=== PATIENT | male | born 1995 | race Caucasian/White ===

== ENCOUNTER 2017-02-09 10:34 | Emergency (ER) | payer OTHER ==
--- NOTE | 2017-02-09 12:09 | ED CLINICAL REPORT ---
Clinical Report - Physicians/Mid Levels [facility] [address] [place] [address] 02/09/2017 10:36 Patient: JOHNSON JOEL Time Seen: 10:57. Arrived- By private vehicle. Historian- patient. HISTORY OF PRESENT ILLNESS Chief Complaint: Injury to the right elbow and right wrist. The injury happened yesterday. Fell. Occurred on a street. ( The patient fell forward while skateboarding. He landed on both hands. His main pain is in the right elbow and a bit less in the right wrist. He also has an abrasion on the right knee and left hand.). Patient is experiencing moderate pain. No other injury. REVIEW OF SYSTEMS The patient sustained a laceration (Abrasion). No swelling, tingling, numbness, weakness or suspected foreign body. PAST HISTORY Tetanus immunization status is unknown. SOCIAL HISTORY Current every day smoker. ADDITIONAL NOTES The nursing notes have been reviewed. PHYSICAL EXAM Appearance: Alert. No acute distress. Head: Head atraumatic. Neck: C-spine non-tender. Respiratory: Chest nontender. Abdomen: Soft and nontender. Back: No tenderness. Extremities: Right elbow: moderate tenderness and mild swelling located in the area of the radial head and olecranon. Small joint effusion present. Neurovascular intact distally. No erythema, laceration, abrasion, foreign body or deformity. No limitation in ROM. Right wrist: moderate tenderness located in the ulnar aspect of the wrist. Neurovascular intact distally. No swelling, abrasion, foreign body or deformity. Not localized to the anatomic snuffbox. No joint effusion or limitation in ROM. Neuro, Vascular and Tendons: Sensation intact. Motor intact. Neuro: No alteration in mental status. LABS, X-RAYS, AND EKG Rt Elbow X-ray: (WRIST IS NEG ELBOW EXAM IS CW RADIAL HEAD FRACTRUE, XRAY SHOWS ANT AND POST FAT PAD SIGN. RR INDICATION: TRAUMA/INJURY TECHNIQUE: Nine views (including repeat views). COMPARISON: None. FINDINGS: There is a nondisplaced vertical fracture of the right radial head. There is a moderate right elbow effusion. The rest of the osseous structures and joint spaces are normal. IMPRESSION: 1. Nondisplaced vertical intra-articular fracture of the right radial head. 2. Associated moderate effusion. Dictated by: EDIN VYAS MD D: CLAUDIA;02/09/17 1937 <Electronically signed by EDIN VYAS MD in OV> 02/09/17 1357). The X-rays were independently viewed by me. PROGRESS AND PROCEDURES Splint Application: Sling applied to right upper extremity. Splint applied with direct supervision by me. Reassessed extremity following splint application. Neurovascular intact. Course of Care: MEDS ICG 12:36 02/09/17. Sling replaced with a longer sling to support the wrist. Disposition: Discharged. Condition: stable. CLINICAL IMPRESSION Abrasion to the right hand and right knee and left hand. Closed nondisplaced fracture of the head of the right radius INSTRUCTIONS Apply ice. Elevate affected areas above chest level. Wear sling. (YOU HAVE A RADIAL HEAD FRACTURE. EARLY MOVEMENT 4 TIMES A DAY IS RECOMMENDED). Prescription Medications: Hydrocodone/APAP 5mg / 325mg: take 1-2 orally every 4 hours as needed for pain. Dispense twelve (12). No refill. Follow-up with: [facility], , [address], , [place], [id number] Follow up in six days. Reason for referral: FOLLOW UP OF RADIAL HEAD FRACTURE. (Electronically signed by Al Melton MD 02/10/2017 23:19)
--- NOTE | 2017-02-09 12:09 | ED CLINICAL REPORT ---
Clinical Report - Physicians/Mid Levels [facility] [address] [place] [address] 02/09/2017 10:36 Patient: JOHNSON JOEL Time Seen: 10:57. Arrived- By private vehicle. Historian- patient. HISTORY OF PRESENT ILLNESS Chief Complaint: Injury to the right elbow and right wrist. The injury happened yesterday. Fell. Occurred on a street. ( The patient fell forward while skateboarding. He landed on both hands. His main pain is in the right elbow and a bit less in the right wrist. He also has an abrasion on the right knee and left hand.). Patient is experiencing moderate pain. No other injury. REVIEW OF SYSTEMS The patient sustained a laceration (Abrasion). No swelling, tingling, numbness, weakness or suspected foreign body. PAST HISTORY Tetanus immunization status is unknown. SOCIAL HISTORY Current every day smoker. ADDITIONAL NOTES The nursing notes have been reviewed. PHYSICAL EXAM Appearance: Alert. No acute distress. Head: Head atraumatic. Neck: C-spine non-tender. Respiratory: Chest nontender. Abdomen: Soft and nontender. Back: No tenderness. Extremities: Right elbow: moderate tenderness and mild swelling located in the area of the radial head and olecranon. Small joint effusion present. Neurovascular intact distally. No erythema, laceration, abrasion, foreign body or deformity. No limitation in ROM. Right wrist: moderate tenderness located in the ulnar aspect of the wrist. Neurovascular intact distally. No swelling, abrasion, foreign body or deformity. Not localized to the anatomic snuffbox. No joint effusion or limitation in ROM. Neuro, Vascular and Tendons: Sensation intact. Motor intact. Neuro: No alteration in mental status. LABS, X-RAYS, AND EKG Rt Elbow X-ray: (WRIST IS NEG ELBOW EXAM IS CW RADIAL HEAD FRACTRUE, XRAY SHOWS ANT AND POST FAT PAD SIGN. RR INDICATION: TRAUMA/INJURY TECHNIQUE: Nine views (including repeat views). COMPARISON: None. FINDINGS: There is a nondisplaced vertical fracture of the right radial head. There is a moderate right elbow effusion. The rest of the osseous structures and joint spaces are normal. IMPRESSION: 1. Nondisplaced vertical intra-articular fracture of the right radial head. 2. Associated moderate effusion. Dictated by: EDIN VYAS MD D: CLAUDIA;02/09/17 8177 <Electronically signed by EDIN VYAS MD in OV> 02/09/17 1357). The X-rays were independently viewed by me. PROGRESS AND PROCEDURES Splint Application: Sling applied to right upper extremity. Splint applied with direct supervision by me. Reassessed extremity following splint application. Neurovascular intact. Course of Care: MEDS ICG 12:36 02/09/17. Sling replaced with a longer sling to support the wrist. Disposition: Discharged. Condition: stable. CLINICAL IMPRESSION Abrasion to the right hand and right knee and left hand. Closed nondisplaced fracture of the head of the right radius INSTRUCTIONS Apply ice. Elevate affected areas above chest level. Wear sling. (YOU HAVE A RADIAL HEAD FRACTURE. EARLY MOVEMENT 4 TIMES A DAY IS RECOMMENDED). Prescription Medications: Hydrocodone/APAP 5mg / 325mg: take 1-2 orally every 4 hours as needed for pain. Dispense twelve (12). No refill. Follow-up with: [facility], , [address], , [place], [id number] Follow up in six days. Reason for referral: FOLLOW UP OF RADIAL HEAD FRACTURE. (Electronically signed by Al Melton MD 02/10/2017 23:19)
--- NOTE | 2017-02-09 12:10 | ED NURSING NOTES ---
Clinical Report - Nurses [facility] [address] [place] [address] 02/09/2017 10:36 [facility]EL [id number] TRIAGE Triage time 10:41. Acuity: LEVEL 4. Chief Complaint: INJURY TO THE RIGHT ELBOW, RIGHT FOREARM, RIGHT WRIST and RIGHT HAND. 10:44 02/09/17. LIVIER COMA SCORE: [place] Coma Scale: 15- eyes open spontaneously (4); best verbal response- oriented x 4 (5); best motor response- obeys commands (6). --10:47 Aravind Unger R.N. 10:41 02/09/17. BP: 122/78. HR: 75. RR: 16. O2 saturation: 99% on room air. Temp: 98.7 F (oral). Pain level now: 07/21. --10:47 Aravind Unger R.N. Weight: 86.1 kg stated. Height/Length: 75 inches Per Patient. BMI: 23.7. Growth Chart Percentile: Weight: 88.6%. Height/Length: 97.5%. --10:45 Aravind Unger R.N. Medications None. --12:56 Jalen Conley R.N. Allergies No Known Drug Allergy. --12:56 Jalen Conley R.N. History Arrived by private vehicle. Historian: patient. Accompanied by family. This occurred yesterday. ( Fell skateboarding FOOSH. Now c/o pain in his right hand, wrist, elbow). 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 PAST MEDICAL HX: Tetanus status: up-to-date. SOCIAL HX: Heavy tobacco smoker (cigarette)- 1 pack per day. No alcohol use or drug use. ABUSE ASSESSMENT: No report of abuse. --10:47 Aravind Unger R.N. Interventions ID band on patient. To treatment room. --10:47 Aravind Unger R.N. PHYSICAL ASSESSMENT 10:49 02/09/17. Ambulatory to room. GENERAL / NEURO / PSYCH: Oriented X 4. Appears in pain. EXTREMITIES: Limited ROM present in the right elbow, right forearm and right wrist. Capillary refill is less than 2 seconds in the extremities. Extremity pulses are within normal limits. Neuro-vascular status intact to the extremity. Right elbow: tenderness and swelling. Right forearm: tenderness. Right wrist: tenderness and swelling. Right hand: tenderness, swelling and small abrasion. No deformity. SKIN: Skin is warm and dry. He has an abrasion on the right hand and left hand. --10:49 Aravind Unger R.N. NURSING PROGRESS NOTES 10:50 02/09/17. Reassurance given. Two patient identifiers checked. Call light placed in reach. Bed placed in lowest position. Brakes of bed on. Patient ready for evaluation- chart flagged. --10:50 Aravind Unger R.N. DISPOSITION / DISCHARGE Departure time: 12:56 Feb 09 2017. Condition at departure: improved. No learning barriers present. Discharge instructions provided and reviewed with the patient and parent. Reviewed warnings. Reviewed medication(s). Treatments reviewed. Reviewed referrals. Patient verbalized understanding. Written instructions provided in Hebrew. The patient was discharged home and accompanied by parent. He left the Emergency Department ambulatory and via private vehicle. Parent driving. --12:56 Jalen Conley R.N. 12:55 02/09/17. BP: 126/72. HR: 88. RR: 18. O2 saturation: 98%. Temp: 98.6 F. Pain level now 5/10. --12:56 Jalen Conley R.N. Locked/Released at 02/09/2017 15:48 by Aravind Unger R.N.
--- NOTE | 2017-02-09 12:10 | ED ORDER SUMMARY ---
..... Patient: JOHNSON JOEL OrderSheet [facility] VisitID: [id number] [address] [place] [address] 21y, M Registration Date/Time: 02/09/2017 ORDER SHEET Weight: 86.1 kg (stated) Allergies: No Known Drug Allergy GENERAL ORDERS: Elbow 3 or 4V Right Urgent (11:08 02/09/2017 Tone ODEN) (Ack 11:12 Lázaro) (11:48 Ana) Wrist 3 or 4V Left Urgent (11:08 02/09/2017 Tone ODEN) (Ack 11:12 Lázaro) (11:48 Ana) (Cancelled: WRONG SIDE12:18 Tone ODEN) Sling - arm (12:05 02/09/2017 Tone ODEN) (12:10 Lázaro) Wrist 3 or 4V Right Urgent (12:19 02/09/2017 Tone ODEN) (Ack 12:28 Lázaro) MEDICATION ORDERS: IV FLUIDS: ORDER SHEET NOTES: [Electronically signed by Aravind Unger R.N. (15:48 02/09/2017)] [Electronically signed by Al Melton MD (23:19 02/10/2017)] [Electronically locked/signed by Aravind Unger R.N. (15:48 02/09/2017)]
--- NOTE | 2017-02-09 12:10 | ED ORDER SUMMARY ---
..... Patient: JOHNSON JOEL OrderSheet [facility] VisitID: [id number] [address] [place] [address] 21y, M Registration Date/Time: 02/09/2017 ORDER SHEET Weight: 86.1 kg (stated) Allergies: No Known Drug Allergy GENERAL ORDERS: Elbow 3 or 4V Right Urgent (11:08 02/09/2017 Tone ODEN) (Ack 11:12 Lázaro) (11:48 Ana) Wrist 3 or 4V Left Urgent (11:08 02/09/2017 Tone ODEN) (Ack 11:12 Lázaro) (11:48 Ana) (Cancelled: WRONG SIDE12:18 Tone ODEN) Sling - arm (12:05 02/09/2017 Tone ODEN) (12:10 Lázaro) Wrist 3 or 4V Right Urgent (12:19 02/09/2017 Tone ODEN) (Ack 12:28 Lázaro) MEDICATION ORDERS: IV FLUIDS: ORDER SHEET NOTES: [Electronically signed by Aravind Unger R.N. (15:48 02/09/2017)] [Electronically signed by Al Melton MD (23:19 02/10/2017)] [Electronically locked/signed by Aravind Unger R.N. (15:48 02/09/2017)]
--- NOTE | 2017-02-09 12:10 | ED NURSING NOTES ---
Clinical Report - Nurses [facility] [address] [place] [address] 02/09/2017 10:36 [id number] TRI[facility] Triage time 10:41. Acuity: LEVEL 4. Chief Complaint: INJURY TO THE RIGHT ELBOW, RIGHT FOREARM, RIGHT WRIST and RIGHT HAND. 10:44 02/09/17. LIVIER COMA SCORE: [place] Coma Scale: 15- eyes open spontaneously (4); best verbal response- oriented x 4 (5); best motor response- obeys commands (6). --10:47 Aravind Unger R.N. 10:41 02/09/17. BP: 122/78. HR: 75. RR: 16. O2 saturation: 99% on room air. Temp: 98.7 F (oral). Pain level now: 07/21. --10:47 Aravind Unger R.N. Weight: 86.1 kg stated. Height/Length: 75 inches Per Patient. BMI: 23.7. Growth Chart Percentile: Weight: 88.6%. Height/Length: 97.5%. --10:45 Aravind Unger R.N. Medications None. --12:56 Jalen Conley R.N. Allergies No Known Drug Allergy. --12:56 Jalen Conley R.N. History Arrived by private vehicle. Historian: patient. Accompanied by family. This occurred yesterday. ( Fell skateboarding FOOSH. Now c/o pain in his right hand, wrist, elbow). 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 PAST MEDICAL HX: Tetanus status: up-to-date. SOCIAL HX: Heavy tobacco smoker (cigarette)- 1 pack per day. No alcohol use or drug use. ABUSE ASSESSMENT: No report of abuse. --10:47 Aravind Unger R.N. Interventions ID band on patient. To treatment room. --10:47 Aravind Unger R.N. PHYSICAL ASSESSMENT 10:49 02/09/17. Ambulatory to room. GENERAL / NEURO / PSYCH: Oriented X 4. Appears in pain. EXTREMITIES: Limited ROM present in the right elbow, right forearm and right wrist. Capillary refill is less than 2 seconds in the extremities. Extremity pulses are within normal limits. Neuro-vascular status intact to the extremity. Right elbow: tenderness and swelling. Right forearm: tenderness. Right wrist: tenderness and swelling. Right hand: tenderness, swelling and small abrasion. No deformity. SKIN: Skin is warm and dry. He has an abrasion on the right hand and left hand. --10:49 Aravind Unger R.N. NURSING PROGRESS NOTES 10:50 02/09/17. Reassurance given. Two patient identifiers checked. Call light placed in reach. Bed placed in lowest position. Brakes of bed on. Patient ready for evaluation- chart flagged. --10:50 Aravind Unger R.N. DISPOSITION / DISCHARGE Departure time: 12:56 Feb 09 2017. Condition at departure: improved. No learning barriers present. Discharge instructions provided and reviewed with the patient and parent. Reviewed warnings. Reviewed medication(s). Treatments reviewed. Reviewed referrals. Patient verbalized understanding. Written instructions provided in Indonesian. The patient was discharged home and accompanied by parent. He left the Emergency Department ambulatory and via private vehicle. Parent driving. --12:56 Jalen Conley R.N. 12:55 02/09/17. BP: 126/72. HR: 88. RR: 18. O2 saturation: 98%. Temp: 98.6 F. Pain level now 5/10. --12:56 Jalen Conley R.N. Locked/Released at 02/09/2017 15:48 by Aravind Unger R.N.
--- NOTE | 2017-02-09 13:55 | DIAGNOSTIC IMAGING REPORT ---
PROCEDURE: XR WRIST MIN 3 VIEWS - RIGHT INDICATION: TRAUMA/INJURY TECHNIQUE: Four views. COMPARISON: None. FINDINGS: Osseous structures and joint spaces are normal. If an occult scaphoid fracture is suspected clinically, follow-up examination in 10-14 days may be of assistance. IMPRESSION: 1. Normal right wrist.
--- NOTE | 2017-02-09 13:57 | DIAGNOSTIC IMAGING REPORT ---
PROCEDURE: XR ELBOW 3 OR 4 VIEWS - RIGHT INDICATION: TRAUMA/INJURY TECHNIQUE: Nine views (including repeat views). COMPARISON: None. FINDINGS: There is a nondisplaced vertical fracture of the right radial head. There is a moderate right elbow effusion. The rest of the osseous structures and joint spaces are normal. IMPRESSION: 1. Nondisplaced vertical intra-articular fracture of the right radial head. 2. Associated moderate effusion.
--- NOTE | 2017-02-10 23:20 | ED MED RECONCILIATION SUMMARY ---
Patient: JOHNSON JOEL Medication Reconciliation Report [facility] VisitID: [id number] [address] [place] [address] 21y, M Registration Date/Time: 02/09/2017 Weight: 86.1 kg Height/Length: 75 in. BMI: 23.7 ALLERGIES: No Known Drug Allergy The patient's Home Medications are listed below: NONE. The source(s) of the original Home Medication information: Not obtained. The following Medications were given to the patient in the Emergency Department: None. The following Medications were prescribed to the patient: Hydrocodone/APAP 5mg / 325mg: take 1-2 orally every 4 hours as needed for pain. Dispense twelve (12). No refill. -- Al Melton MD
--- NOTE | 2017-02-10 23:20 | ED MED RECONCILIATION SUMMARY ---
Patient: JOHNSON JOEL Medication Reconciliation Report [facility] VisitID: [id number] [address] [place] [address] 21y, M Registration Date/Time: 02/09/2017 Weight: 86.1 kg Height/Length: 75 in. BMI: 23.7 ALLERGIES: No Known Drug Allergy The patient's Home Medications are listed below: NONE. The source(s) of the original Home Medication information: Not obtained. The following Medications were given to the patient in the Emergency Department: None. The following Medications were prescribed to the patient: Hydrocodone/APAP 5mg / 325mg: take 1-2 orally every 4 hours as needed for pain. Dispense twelve (12). No refill. -- Al Melton MD
--- NOTE | 2017-02-10 23:20 | ED DISCHARGE INSTRUCTIONS ---
Patient: JOHNSON JOEL General Instructions [facility] VisitID: [id number] [address] [place] [address] 21y, M Registration Date/Time: 02/09/2017 Abrasion to the right hand and right knee and left hand. Closed nondisplaced fracture of the head of the right radius INSTRUCTIONS Apply ice. Elevate affected areas above chest level. Wear sling. (YOU HAVE A RADIAL HEAD FRACTURE. EARLY MOVEMENT 4 TIMES A DAY IS RECOMMENDED). Prescription Medications: Hydrocodone/APAP 5mg / 325mg: take 1-2 orally every 4 hours as needed for pain. Dispense twelve (12). No refill. Follow-up with: [facility], , [address], [place], [id number] Follow up in six days. Reason for referral: FOLLOW UP OF RADIAL HEAD FRACTURE. ADDITIONAL INFORMATION Fracture: Radial Head You have a break (fracture) at the elbow (radial head). This may be a small crack in the bone; or a major break with the broken parts pushed out of position. This fracture usually takes 3-6 weeks to heal. In most cases, initial treatment is with a splint and sling, or a sling alone. Severe fractures may require putting the bone back in place. Sometimes surgery is required. Home Care: Keep your arm elevated to reduce pain and swelling. When sitting or lying down elevate your arm above the level of your heart. You can do this by placing your arm on a pillow that rests on your chest or on a pillow at your side. This is most important during the first 48 hours after injury. Apply an ice pack (ice cubes in a plastic bag, wrapped in a towel) over the injured area for 20 minutes every 1-2 hours the first day. You can place the ice pack inside the sling and directly over the splint. Continue with ice packs 3-4 times a day for the next two days, then as needed for the relief of pain and swelling. If you were given a sling and splint, leave it in place for the time advised. Keep the splint completely dry at all times. Bathe with your splint out of the water, protected with a large plastic bag, rubber-banded at the top end. If a fiberglass splint/cast gets wet, you can dry it with a hair-dryer. If you were given a sling only, wear it for the first week. Unless told otherwise, gradually begin range of motion exercises, after the first week, or as advised by your doctor. You may use acetaminophen (Tylenol) or ibuprofen (Motrin, Advil) to control pain, unless another pain medicine was prescribed. [NOTE: If you have chronic liver or kidney disease or ever had a stomach ulcer or GI bleeding, talk with your doctor before using these medicines.] Follow Up with your doctor in one week, or as advised by our staff, to be sure the bone is healing properly. An elbow joint will become stiff if immobile for too long. Ask your doctor when to begin range of motion exercises to prevent the elbow from getting stiff. [NOTE: If X-rays were taken, they will be reviewed by a radiologist. You will be notified if there are any new findings that may affect your care.] Get Prompt Medical Attention if any of the following occur: The plaster splint becomes wet or soft The fiberglass splint remains wet for more than 24 hours Increased tightness or pain in the elbow Fingers become swollen, cold, blue, numb or tingly Hydrocodone Bitartrate, Acetaminophen Oral tablet What is this medicine? ACETAMINOPHEN; HYDROCODONE (a set a ANGELIA layton fen; romaine droe KOE done) is a pain reliever. It is used to treat mild to moderate pain. How should I use this medicine? Take this medicine by mouth. Swallow it with a full glass of water. Follow the directions on the prescription label. If the medicine upsets your stomach, take the medicine with food or milk. Do not take more than you are told to take. Talk to your epoxy specialist regarding the use of this medicine in children. This medicine is not approved for use in children. What side effects may I notice from receiving this medicine? Side effects that you should report to your doctor or health primary care pediatrician as soon as possible: allergic reactions like skin rash, itching or hives, swelling of the face, lips, or tongue breathing problems confusion feeling faint or lightheaded, falls stomach pain yellowing of the eyes or skin Side effects that usually do not require medical attention (report to your doctor or health primary care pediatrician if they continue or are bothersome): nausea, vomiting stomach upset What may interact with this medicine? alcohol antihistamines isoniazid medicines for depression, anxiety, or psychotic disturbances medicines for sleep muscle relaxants naltrexone narcotic medicines (opiates) for pain phenobarbital ritonavir tramadol What if I miss a dose? If you miss a dose, take it as soon as you can. If it is almost time for your next dose, take only that dose. Do not take double or extra doses. Where should I keep my medicine? Keep out of the reach of children. This medicine can be abused. Keep your medicine in a safe place to protect it from theft. Do not share this medicine with anyone. Selling or giving away this medicine is dangerous and against the law. Store at room temperature between 15 and 30 degrees C (59 and 86 degrees F). Protect from light. Keep container tightly closed. Throw away any unused medicine after the expiration date. Discard unused medicine and used packaging carefully. Pets and children can be harmed if they find used or lost packages. What should I tell my health care provider before I take this medicine? They need to know if you have any of these conditions: brain tumor Crohn's disease, inflammatory bowel disease, or ulcerative colitis drink more than 3 alcohol-containing drinks per day drug abuse or addiction head injury heart or circulation problems kidney disease or problems going to the bathroom liver disease lung disease, asthma, or breathing problems an unusual or allergic reaction to acetaminophen, hydrocodone, other opioid analgesics, other medicines, foods, dyes, or preservatives or trying to get breast-feeding What should I watch for while using this medicine? Tell your doctor or health primary care pediatrician if your pain does not go away, if it gets worse, or if you have new or a different type of pain. You may develop tolerance to the medicine. Tolerance means that you will need a higher dose of the medicine for pain relief. Tolerance is normal and is expected if you take the medicine for a long time. Do not suddenly stop taking your medicine because you may develop a severe reaction. Your body becomes used to the medicine. This does NOT mean you are addicted. Addiction is a behavior related to getting and using a drug for a non-medical reason. If you have pain, you have a medical reason to take pain medicine. Your doctor will tell you how much medicine to take. If your doctor wants you to stop the medicine, the dose will be slowly lowered over time to avoid any side effects. You may get drowsy or dizzy when you first start taking the medicine or change doses. Do not drive, use machinery, or do anything that may be dangerous until you know how the medicine affects you. Stand or sit up slowly. There are different types of narcotic medicines (opiates) for pain. If you take more than one type at the same time, you may have more side effects. Give your health care provider a list of all medicines you use. Your doctor will tell you how much medicine to take. Do not take more medicine than directed. Call emergency for help if you have problems breathing. The medicine will cause constipation. Try to have a bowel movement at least every 2 to 3 days. If you do not have a bowel movement for 3 days, call your doctor or health primary care pediatrician. Too much acetaminophen can be very dangerous. Do not take Tylenol (acetaminophen) or medicines that contain acetaminophen with this medicine. Many non-prescription medicines contain acetaminophen. Always read the labels carefully. You have been given the following additional information: Radial Head Fracture Hydrocodone Bitartrate, Acetaminophen Oral tablet (Electronically signed by Al Melton MD 02/10/2017 23:19)
--- NOTE | 2017-02-10 23:20 | ED MAR SUMMARY ---
..... Medication Administration Record [facility] [address] [place], [place] [id number] Patient: JOHNSON JOEL Visit ID: [id number] 21y, M Weight: 86.1 kg Height/Length: 75 in BMI: 23.7 ALLERGIES: No Known Drug Allergy
--- NOTE | 2017-02-10 23:20 | ED DISCHARGE INSTRUCTIONS ---
Patient: JOHNSON JOEL General Instructions [facility] VisitID: [id number] [address] [place] [address] 21y, M Registration Date/Time: 02/09/2017 Abrasion to the right hand and right knee and left hand. Closed nondisplaced fracture of the head of the right radius INSTRUCTIONS Apply ice. Elevate affected areas above chest level. Wear sling. (YOU HAVE A RADIAL HEAD FRACTURE. EARLY MOVEMENT 4 TIMES A DAY IS RECOMMENDED). Prescription Medications: Hydrocodone/APAP 5mg / 325mg: take 1-2 orally every 4 hours as needed for pain. Dispense twelve (12). No refill. Follow-up with: [facility], , [address], [place], [id number] Follow up in six days. Reason for referral: FOLLOW UP OF RADIAL HEAD FRACTURE. ADDITIONAL INFORMATION Fracture: Radial Head You have a break (fracture) at the elbow (radial head). This may be a small crack in the bone; or a major break with the broken parts pushed out of position. This fracture usually takes 3-6 weeks to heal. In most cases, initial treatment is with a splint and sling, or a sling alone. Severe fractures may require putting the bone back in place. Sometimes surgery is required. Home Care: Keep your arm elevated to reduce pain and swelling. When sitting or lying down elevate your arm above the level of your heart. You can do this by placing your arm on a pillow that rests on your chest or on a pillow at your side. This is most important during the first 48 hours after injury. Apply an ice pack (ice cubes in a plastic bag, wrapped in a towel) over the injured area for 20 minutes every 1-2 hours the first day. You can place the ice pack inside the sling and directly over the splint. Continue with ice packs 3-4 times a day for the next two days, then as needed for the relief of pain and swelling. If you were given a sling and splint, leave it in place for the time advised. Keep the splint completely dry at all times. Bathe with your splint out of the water, protected with a large plastic bag, rubber-banded at the top end. If a fiberglass splint/cast gets wet, you can dry it with a hair-dryer. If you were given a sling only, wear it for the first week. Unless told otherwise, gradually begin range of motion exercises, after the first week, or as advised by your doctor. You may use acetaminophen (Tylenol) or ibuprofen (Motrin, Advil) to control pain, unless another pain medicine was prescribed. [NOTE: If you have chronic liver or kidney disease or ever had a stomach ulcer or GI bleeding, talk with your doctor before using these medicines.] Follow Up with your doctor in one week, or as advised by our staff, to be sure the bone is healing properly. An elbow joint will become stiff if immobile for too long. Ask your doctor when to begin range of motion exercises to prevent the elbow from getting stiff. [NOTE: If X-rays were taken, they will be reviewed by a radiologist. You will be notified if there are any new findings that may affect your care.] Get Prompt Medical Attention if any of the following occur: The plaster splint becomes wet or soft The fiberglass splint remains wet for more than 24 hours Increased tightness or pain in the elbow Fingers become swollen, cold, blue, numb or tingly Hydrocodone Bitartrate, Acetaminophen Oral tablet What is this medicine? ACETAMINOPHEN; HYDROCODONE (a set a ANGELIA layton fen; romaine droe KOE done) is a pain reliever. It is used to treat mild to moderate pain. How should I use this medicine? Take this medicine by mouth. Swallow it with a full glass of water. Follow the directions on the prescription label. If the medicine upsets your stomach, take the medicine with food or milk. Do not take more than you are told to take. Talk to your front desk representative regarding the use of this medicine in children. This medicine is not approved for use in children. What side effects may I notice from receiving this medicine? Side effects that you should report to your doctor or health careers adviser as soon as possible: allergic reactions like skin rash, itching or hives, swelling of the face, lips, or tongue breathing problems confusion feeling faint or lightheaded, falls stomach pain yellowing of the eyes or skin Side effects that usually do not require medical attention (report to your doctor or health careers adviser if they continue or are bothersome): nausea, vomiting stomach upset What may interact with this medicine? alcohol antihistamines isoniazid medicines for depression, anxiety, or psychotic disturbances medicines for sleep muscle relaxants naltrexone narcotic medicines (opiates) for pain phenobarbital ritonavir tramadol What if I miss a dose? If you miss a dose, take it as soon as you can. If it is almost time for your next dose, take only that dose. Do not take double or extra doses. Where should I keep my medicine? Keep out of the reach of children. This medicine can be abused. Keep your medicine in a safe place to protect it from theft. Do not share this medicine with anyone. Selling or giving away this medicine is dangerous and against the law. Store at room temperature between 15 and 30 degrees C (59 and 86 degrees F). Protect from light. Keep container tightly closed. Throw away any unused medicine after the expiration date. Discard unused medicine and used packaging carefully. Pets and children can be harmed if they find used or lost packages. What should I tell my health care provider before I take this medicine? They need to know if you have any of these conditions: brain tumor Crohn's disease, inflammatory bowel disease, or ulcerative colitis drink more than 3 alcohol-containing drinks per day drug abuse or addiction head injury heart or circulation problems kidney disease or problems going to the bathroom liver disease lung disease, asthma, or breathing problems an unusual or allergic reaction to acetaminophen, hydrocodone, other opioid analgesics, other medicines, foods, dyes, or preservatives or trying to get breast-feeding What should I watch for while using this medicine? Tell your doctor or health careers adviser if your pain does not go away, if it gets worse, or if you have new or a different type of pain. You may develop tolerance to the medicine. Tolerance means that you will need a higher dose of the medicine for pain relief. Tolerance is normal and is expected if you take the medicine for a long time. Do not suddenly stop taking your medicine because you may develop a severe reaction. Your body becomes used to the medicine. This does NOT mean you are addicted. Addiction is a behavior related to getting and using a drug for a non-medical reason. If you have pain, you have a medical reason to take pain medicine. Your doctor will tell you how much medicine to take. If your doctor wants you to stop the medicine, the dose will be slowly lowered over time to avoid any side effects. You may get drowsy or dizzy when you first start taking the medicine or change doses. Do not drive, use machinery, or do anything that may be dangerous until you know how the medicine affects you. Stand or sit up slowly. There are different types of narcotic medicines (opiates) for pain. If you take more than one type at the same time, you may have more side effects. Give your health care provider a list of all medicines you use. Your doctor will tell you how much medicine to take. Do not take more medicine than directed. Call emergency for help if you have problems breathing. The medicine will cause constipation. Try to have a bowel movement at least every 2 to 3 days. If you do not have a bowel movement for 3 days, call your doctor or health careers adviser. Too much acetaminophen can be very dangerous. Do not take Tylenol (acetaminophen) or medicines that contain acetaminophen with this medicine. Many non-prescription medicines contain acetaminophen. Always read the labels carefully. You have been given the following additional information: Radial Head Fracture Hydrocodone Bitartrate, Acetaminophen Oral tablet (Electronically signed by Al Melton MD 02/10/2017 23:19)
--- NOTE | 2017-02-10 23:20 | ED MAR SUMMARY ---
..... Medication Administration Record [facility] [address] [place], [place] [id number] Patient: JOHNSON JOEL Visit ID: [id number] 21y, M Weight: 86.1 kg Height/Length: 75 in BMI: 23.7 ALLERGIES: No Known Drug Allergy
== END 2017-02-09 12:50 | disposition home or self-care (01) ==
LOC: ED SRH 10:34
DX: S52.124A Nondisplaced fracture of head of right radius, initial encounter for closed fracture (principal); S60.512A Abrasion of left hand, initial encounter; S60.511A Abrasion of right hand, initial encounter; S80.211A Abrasion, right knee, initial encounter; V00.131A Fall from skateboard, initial encounter; Y99.8 Other external cause status; Y92.9 Unspecified place or not applicable; Y93.51 Activity, roller skating (inline) and skateboarding